=== PATIENT | male | born 1975 | race Hispanic/Latino ===

== ENCOUNTER 2016-07-13 15:32 | Emergency (ER) | payer OTHER ==
[~2016-07-13] VITALS: Ht 162.6 cm; Wt 115.0 kg
[~2016-07-13 15:32] MED LIST: TACR100O2 TP
[2016-07-13 15:58] VITALS: BP 139/98; PULSE 63; RESP 16; O2SAT 95
--- NOTE | 2016-07-13 18:04 | ED.REPORT ---
HPI-General Illness Date of Service Jul 13, 2016 ED Provider: Dr. Tyler Wilder Tre Chen is a 40 year old man with a PMH of mild Hemophilia A who presents with a 2 day history of bleeding in his mouth. He reports that on Sunday he was eating and he began to bleed from a site underneath his tongue. 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 He has required Factor 8 in the past for bleeding events and is concerned that he may need this medication now to prevent further bleeding. Nursing Notes Chief Complaint: Laceration Nursing Notes Reviewed: Yes Allergies: Coded Allergies: NSAIDS (Non-Steroidal Anti-Inflamma (Verified Allergy, Unknown, 07/13/16) Scheduled Tacrolimus (Protopic) 100 Gm Oint...g. 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 Physical Exam Gen: A/O x3 pleasant gentleman in NAD Neck: Supple, Full ROM, no lymphadenpathy HEENT: PERRL, EOMI, no conjunctival pallor, small swollen erythematous raised lesion just anterior to the frenulum not activel bleeding CV: RRR, no murmurs rubs or gallops Resp: Lungs CTA BL, no wheezing rales or rhonchi Abdomen: Soft, obese, non tender, no organomegally Extr: No cyanosis clubbing or edema Neuro: CN 2-12 grossly intact, no focal neurologic deficit. Vital Signs Vital Signs Date Time Temp Pulse Resp B/P Pulse Ox O2 Delivery O2 Flow Rate FiO2 07/13/16 15:58 36.5 63 16 139/98 95 Initial VS: Reviewed, Vital signs abnormal (Mild HTN) Re-Eval/Medical Decision Med Decision/Clinical Course Patient with a history of mild Hemophilia A per outpatient records not actively bleeding. The lesion under his tongue was examined and appeared to be healing well without any imminent risk of further hemorrhage. Patient was discharged home with follow up instructions and return precautions Counseled Regarding: Diagnosis, Need for follow-up, When/why to return to ED Discharge & Departure Shift Change Sign-Out Patient Care Transferred: No Discussed Complaint(s): Yes Response to Therapy: Unchanged Primary Impression: Bleeding Disposition: Home Discharge Condition All VS Reviewed: Yes Condition: Stable Patient Instructions: Contusion (ED) Additional Instructions: It looks like the spot on under your tongue has stopped bleeding at this time. It is not necessary to give any medication since this the bleeding has stopped. We recommend that you eat soft foods like bananas, applesauce, and yogurt for the next week until the spot in your mouth is fully healed. If this spot starts bleeding heavily please come back to the ED for further evaluation. Parece que en el lugar debajo de hernandez lengua giron dejado de sangrar en osvaldo momento. No es necesario darle ningn medicamento ya que el sangrado se giron detenido. Se recomienda que usted come alimentos blandos viki banano, compota de manzana y yogur para la prxima semana hasta el punto en la boca es sanado completamente. Si osvaldo punto inicia sangrado intenso por favor juana al ED para la evaluacin adicional. Referrals: [facility] ([facility]) Attending Statement Seen with Dr. Smith on July 13. I agree with above copies to: [facility] Donald L MD Jul 13, 2016 18:04 Merline Menon Jul 13, 2016 18:35 Remigio Smith DO Jul 13, 2016 18:47
[2016-07-14] MEDS ORDERED: TRAN650T5 PO (21:08)
== END 2016-07-13 19:26 | disposition home or self-care (01) ==
LOC: SED 15:32
DX: R58 Hemorrhage, not elsewhere classified (principal); Z88.6 Allergy status to analgesic agent

== ENCOUNTER 2016-07-14 18:38 | Emergency (ER) | payer OTHER ==
[~2016-07-14] VITALS: Ht 162.6 cm; Wt 109.1 kg
[2016-07-14 18:43] VITALS: BP 120/72; PULSE 69; RESP 16; O2SAT 97
[2016-07-14] MEDS ORDERED: Tranexamic Acid 100 mg/mL 10 mL Inj TOPICAL ONE (19:55)
--- NOTE | 2016-07-14 20:25 | ED.REPORT ---
HPI-General Illness Date of Service Jul 14, 2016 ED Provider: Tyler Wilder MD Tre Chen is a 40 year old man with a PMH of Hemophilia A who presents with an 8 hour history of mucosal bleeding under his tongue. He was here in the ED yesterday for a similar issue, but was not actively bleeding at that time so was sent home with instructions to return should his bleeding return or worsen. He arrives with instructions from his Bleeding specialist for treatment of acute events. He does not have any other complaints at this time. Nursing Notes Stated Complaint: NEEDS MEDICATION FOR HEMOPHILIA Chief Complaint: General Complaint Nursing Notes Reviewed: Yes Allergies: Coded Allergies: NSAIDS (Non-Steroidal Anti-Inflamma (Verified Allergy, Unknown, 07/14/16) Scheduled Aminocaproic Acid (Amicar) 1,000 Mg Tablet 4,000 MG PO DAILY Tacrolimus (Protopic) 100 Gm Oint...g. 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 Physical Exam Gen: A/O x3 pleasant cooperative male in NAD Neck: Supple, Full ROM HEENT: Blood oozing from small lesion just anterior to anterior margin of the frenulum under the tongue, PERRL, EOMI, no other active sites of mucosal bleeding identified CV: RRR, no murmurs rubs or gallops Resp: Lungs CTA BL, no wheezing rales or rhonchi Extr: No clubbing cyanosis or edema Neuro: CN 2-12 grossly intact, no focal neurologic deficit. Vital Signs Vital Signs Date Time Temp Pulse Resp B/P Pulse Ox O2 Delivery O2 Flow Rate FiO2 07/15/16 02:18 36.6 64 16 108/56 95 Room Air 07/14/16 18:43 36.9 69 16 120/72 97 Room Air Initial VS: Reviewed, Vital signs normal Interpretation & Diagnostics Lab Results Interpretation Result Diagram: 07/14/16 2228 Test 07/14/16 22:28 White Blood Count 9.5th/mm3 (3.8-10.1) Red Blood Count 4.66mil/mm3 (4.40-5.80) Hemoglobin 14.0g/dL (13.8-17.2) Hematocrit 42.2% (41.0-50.0) Mean Corpuscular Volume 90.6fL (81-100) Mean Corpuscular Hemoglobin 30.0pg (27.0-35.0) Mean Corpuscular Hemoglobin Concent 33.2% (32.0-37.0) Red Cell Distribution Width 14.4% (12.3-15.4) Platelet Count 182bil/L (150-400) Neutrophils (%) (Auto) 60.2% (40-74) Lymphocytes (%) (Auto) 29.5% (14-46) Monocytes (%) (Auto) 7.9% (4-12) Eosinophils (%) (Auto) 1.8% (0-5) Basophils (%) (Auto) 0.4% (0-3) Hold Blue Top Tube Received (Received) Hold Red Top Tube Received (Received) Hold [place] Top Tube Received (Received) Hold [place] Top Tube Received (Received) Lab values outside NL range: no clinical significance. Lab Results Interpretation: CBC not indicative of acute anemia Re-Eval/Medical Decision Med Decision/Clinical Course This patient arrives with instructions from the Bleeding Center on how to manage an acute bleeding event for this gentleman, we spoke with his provider Ryanne from his Bleeding Center and described his situation. She recommended use of Topical Tranexamic acid to immediately abort the bleeding, and then providing him with a script for further PO Tranexamic acid as an outpatient. The topical Tranexamic acid was applied by soaking a gauze and applying the source of his bleeding. Topical agent slowed but did not abort the bleeding, patient was given an oral dose of Amicar 500 mg. 30 minutes after administration of Amicar the patient's bleeding subsided. He was discharged with both an Amicar script for 1 week, and topical tranexamic acid to use for breakthrough bleeding events. Local pressure to the site of bleeding was reinforced. Patient was given follow up instructions and return precautions prior to DC. Counseled Regarding: Diagnosis, Need for follow-up, When/why to return to ED Discharge & Departure Primary Impression: Bleeding Additional Impression: Hemophilia Disposition: Home Discharge Condition All VS Reviewed: Yes Condition: Stable Patient Instructions: Hemophilia (ED) Additional Instructions: Your bleeding appears to be minor and not dangerous at this time. We have applied a topical medication that will help control your bleeding. We have also provided you with a prescription for Amicar, take 4 pills per day for 1 week. We have also given you a vial of Tranexamic acid, if you have further bleeding soak a piece of gauze with this medicine and apply pressure to the bleeding spot. Your bleeding specialist Ryanne will call you tomorrow to check in and see how you are doing. If you bleeding gets much worse, or you become light headed any dizzy after bleeding for a long period of time please contact your primary care provider for further evaluation and recommendations. It is important that when you have a bleed to apply pressure to the area for at least 20 minutes, try not to disturb the site of bleeding. Referrals: [facility] (PCP) Attending Statement Seen and examined with Dr Smith on 07/15 copies to: [facility] David E DO Jul 14, 2016 20:25 Tyler Wilder MD Jul 18, 2016 19:14
[2016-07-14] MEDS ORDERED: TRAN650T5 PO (21:08)
[2016-07-14 22:37] LABS: BASOPHILS % (AUTO) 0.4 % (0-3); EOSINOPHILS % (AUTO) 1.8 % (0-5); MONOCYTES % (AUTO) 7.9 % (4-12); Mean Corpuscular Volume 90.6 fL (81-100); NEUTROPHILS % (AUTO) 60.2 % (40-74); Platelet Count 182 bil/L (150-400)
[2016-07-15] MEDS ORDERED: [UNRECOGNIZED DRUG - CODE] PO (01:39)
[2016-07-15] MEDS ORDERED: Tranexamic Acid 100 mg/mL 10 mL Inj XX ONE (01:40)
[2016-07-15 02:18] VITALS: BP 108/56; PULSE 64; RESP 16; O2SAT 95
== END 2016-07-15 02:15 | disposition home or self-care (01) ==
LOC: SED 18:38
DX: D66 Hereditary factor VIII deficiency (principal)